=== PATIENT | female | born 1985 | race Caucasian/White ===

== ENCOUNTER 2020-07-21 07:33 | Day surgery (SDC) | payer MEDICAID ==
[2020-07-21] MEDS ORDERED: Sodium Chloride 0.9% 1,000 ML IV SCH (08:00)
[2020-07-21] MEDS ORDERED: ceFAZolin 2 GM in Premix Bag 1 BAG IV ONE (08:00)
[2020-07-21] MEDS ORDERED: metroNIDAZOLE/Normal Saline 500 MG in Premix Bag 1 BAG IV ONE (08:00)
[2020-07-21] MEDS ORDERED: Acetaminophen/HYDROcodone 325-5 MG Tab PO PRN (08:48)
[2020-07-21] MEDS ORDERED: hydrOXYzine HCL 100 MG/2 ML SDV IM PRN (08:48)
[2020-07-21] MEDS ORDERED: Benzocaine/Cetylpyridinium/Menthol Lozenge MUCMEM PRN (08:48)
[2020-07-21] MEDS ORDERED: Docusate Sodium 100 MG Cap PO PRN (08:48)
[2020-07-21] MEDS ORDERED: Zolpidem 5 MG Tab PO PRN (08:48)
[2020-07-21] MEDS: Bupivacaine 0.5% 50 ML MDV ONE ×3 (09:04→10:48)
[2020-07-21] MEDS: Lidocaine 1% with EPINEPHrine 1:100,000 50 ML MDV ONE ×3 (09:05→10:48)
[2020-07-21] MEDS ORDERED: Neostigmine Methylsulfate 1 MG/ML 5 ML Syringe ONE (09:15)
[2020-07-21] MEDS ORDERED: fentaNYL 250 MCG/5 ML SDV ONE ×2 (09:15→10:24)
[2020-07-21] MEDS ORDERED: Propofol 200 MG/20 ML SDV ONE (09:15)
[2020-07-21] MEDS ORDERED: Succinylcholine 200 MG/10 ML MDV ONE (09:15)
[2020-07-21] MEDS ORDERED: Ondansetron 4 MG/2 ML SDV ONE (09:15)
[2020-07-21] MEDS ORDERED: Glycopyrrolate 0.2 MG/ML 5 ML MDV ONE (09:15)
[2020-07-21] MEDS ORDERED: Rocuronium 50 MG/5 ML Vial ONE (09:15)
[2020-07-21] MEDS ORDERED: Dexamethasone 4 MG/ML SDV ONE (09:15)
[2020-07-21] MEDS ORDERED: Lactated Ringers 1,000 ML ONE (10:56)
[2020-07-21] MEDS ORDERED: Acetaminophen/HYDROcodone 325-5 MG Tab PO ONE (12:23)
--- NOTE | 2020-07-21 12:43 | OR ---
DATE OF PROCEDURE: 07/21/2020 SURGEON: Michele Dennison MD PROCEDURES: 1. Bilateral rectus sheath blocks. 2. Bilateral transversus abdominis plane blocks. COMPLICATIONS: None. CORRECTIONAL SECURITY OFFICER: None. RISKS: Risks, benefits, alternatives, and limitations including but not limited to infection, bleeding, and injury to abdominal structures were explained to the patient who wished to proceed. PROCEDURE IN DETAIL: The patient was placed in supine position. Left transversus plane was identified first. This was then accessed using a 13 megahertz ultrasound probe. 20% of solution was injected in this location. The right side was then performed in same manner, same fashion, same technique, and the same sequence using the same equipment. The rectus sheaths, left and right were then injected under direct visualization using a 13 megahertz ultrasound probe. 20% of solutions were used for each of these respectively. At no point was the needle advanced blindly or inadvertently into the abdomen. The patient tolerated the procedure well. Michele Dennison MD /[id number]
--- NOTE | 2020-07-22 07:22 | OR ---
DATE OF PROCEDURE: 07/21/2020 SURGEON: Michele Dennison MD PROCEDURE: Laparoscopic cholecystectomy. COMPLICATIONS: None. SPRUE CUTTING PRESS OPERATOR: None. ANESTHESIA: General. RISKS: Risks, benefits, alternatives, and limitations including but not limited to infection, bleeding, common bile duct injury, cystic duct leak, hematoma, seroma, biloma, or the possibility of open surgery and other risks not listed here were explained to the patient who wished to proceed. PROCEDURE IN DETAIL: The patient was placed in supine position. A supraumbilical curvilinear incision was made. A Veress needle was used to enter the abdomen without abnormality. A drop test was performed without abnormality. The abdomen was subsequently insufflated. A 10 and two 5 mm ports were also entered under direct visualization. The gallbladder was retracted cephalad. The infundibulum was retracted inferolaterally. Using blunt dissection, a "clear view" of the gallbladder was obtained with a single pulsatile structure entering the gallbladder and a single non-pulsatile structure entering the gallbladder. These were then subsequently clipped and transected. The remaining 1/3rd of the gallbladder was removed off the gallbladder bed without difficulty. This was delivered through a superior port via bag without difficulty. The abdomen was re-insufflated. The pressure was dropped to 7. There was no evidence of bleeding in the liver bed. The air and liquid were removed. The wounds were closed with 3-0 Vicryl and 4-0 Vicryl in interrupted running fashion. Dermabond was applied. The patient tolerated the procedure well. Michele Dennison MD /[id number]
== END 2020-07-21 14:00 | disposition home or self-care (01) ==
LOC: JP.SDS 07:33
PROVIDERS: ATTEND Surgery
DX: K80.10 Calculus of gallbladder with chronic cholecystitis without obstruction (principal); F17.210 Nicotine dependence, cigarettes, uncomplicated; E66.01 Morbid (severe) obesity due to excess calories; Z68.42 Body mass index [BMI] 45.0-49.9, adult
CPT/HCPCS: 47562; 81025; A9270; J0171; J0330; J0690; J1100; J2405; J2704; J2710; J2795; J3010; J3490; J7030; J7120; 88304

== ENCOUNTER 2022-08-10 07:41 | Emergency (ER) | payer MEDICAID ==
[2022-08-10] MEDS ORDERED: Sodium Chloride 0.9% 10 ML Syringe FLUSH PRN (08:07)
== END 2022-08-10 09:21 | disposition home or self-care (01) ==
LOC: JP.ED 07:41
DX: R10.31 Right lower quadrant pain (principal); K21.9 Gastro-esophageal reflux disease without esophagitis; Z79.899 Other long term (current) drug therapy; Z72.0 Tobacco use; Z90.49 Acquired absence of other specified parts of digestive tract
CPT/HCPCS: 36415; 74176; 74176-26; 80048; 85025; 99284

== ENCOUNTER 2022-08-16 08:53 | Day surgery (SDC) | payer MEDICAID ==
[2022-08-16] MEDS ORDERED: Lactated Ringers 1,000 ML IV SCH (09:30)
[2022-08-16] MEDS ORDERED: Midazolam 1 MG/ML 2 ML SDV ONE (09:36)
[2022-08-16] MEDS ORDERED: Propofol 200 MG/20 ML SDV ONE ×2 (09:36→11:20)
[2022-08-16] MEDS ORDERED: fentaNYL 100 MCG/2 ML SDV ONE (09:36)
== END 2022-08-16 12:50 | disposition home or self-care (01) ==
LOC: JP.SDS 08:53
PROVIDERS: ATTEND Student in an Organized Health Care Education/Training Program
DX: K29.50 Unspecified chronic gastritis without bleeding (principal); K21.9 Gastro-esophageal reflux disease without esophagitis; K25.9 Gastric ulcer, unspecified as acute or chronic, without hemorrhage or perforation
CPT/HCPCS: 43239; 45380; 81025; J2250; J2704; J3010; J7120

== ENCOUNTER 2023-03-05 08:12 | Emergency (ER) | payer MEDICAID | END 2023-03-05 09:30 | disposition home or self-care (01) | LOC: JP.ED 08:12 | DX: K12.1 Other forms of stomatitis (principal); K12.30 Oral mucositis (ulcerative), unspecified; K21.9 Gastro-esophageal reflux disease without esophagitis; E66.9 Obesity, unspecified; Z68.29 Body mass index [BMI] 29.0-29.9, adult; Z87.891 Personal history of nicotine dependence; Z79.899 Other long term (current) drug therapy | CPT/HCPCS: 87651-QW; 99283 ==

== ENCOUNTER 2023-06-21 08:40 | Emergency (ER) | payer MEDICAID ==
[2023-06-21] MEDS: Lactated Ringers 1,000 ML IV ONE (11:19)
[2023-06-21 11:20] LABS: BLOOD UREA NITROGEN,BUN 10 mg/dL (7-18); CALCIUM 8.6 mg/dL (8.5-10.1); CARBON DIOXIDE,CO2 22 mmol/L (21-32); CHLORIDE,CL 102 mmol/L (100-108); CREATININE 0.7 mg/dL (0.6-1.0); ESTIMATED GFR 112 mL/min (>60); GLUCOSE RANDOM 98 mg/dL (74-106); POTASSIUM,K 3.7 mmol/L (3.6-5.2); SODIUM,NA 134 mmol/L (140-148)
[2023-06-21] MEDS: Sodium Chloride 0.9% 10 ML Syringe FLUSH PRN (11:20)
[2023-06-21 11:22] LABS: ANION GAP 13.7 mmol/L (5.0-14.0)
[2023-06-21 11:23] LABS: CORONAVIRUS COVID-19 NAA NEGATIVE (NEGATIVE); INFLUENZA A NAA NEGATIVE (NEGATIVE); INFLUENZA B NAA NEGATIVE (NEGATIVE); RESPIRATORY SYNCYTIAL VIR NAA NEGATIVE (NEGATIVE)
[2023-06-21] MEDS: Ketorolac 30 MG/ML SDV IVPUSH ONE (11:28)
[2023-06-21 12:05] LABS: BASOPHILS ABSOLUTE AUTO 0.04 K/uL (0.00-0.10); BASOPHILS PERCENT AUTO 0.3 % (0.1-1.3); EOSINOPHILS ABSOLUTE AUTO 0.33 K/uL (0.00-0.40); EOSINOPHILS PERCENT AUTO 2.7 % (0.0-5.4); HEMATOCRIT 43.8 % (34.3-46.0); HEMOGLOBIN 15.2 g/dL (11.2-15.5); IMMATURE GRAN ABSOLUTE AUTO 0.04 K/uL (0.00-0.23); IMMATURE GRAN PERCENT AUTO 0.3 % (0.0-0.7); LYMPHOCYTES ABSOLUTE AUTO 1.25 K/uL (0.8-3.3); LYMPHOCYTES PERCENT AUTO 10.3 % (11.4-47.7); MEAN CORPUSCULAR HEMOGLOBIN 30.6 pg (31.6-35.5); MEAN CORPUSCULAR HGB CONC 34.7 g/dL (31.6-35.5); MEAN CORPUSCULAR VOLUME 88.1 fL (81.4-99.0); MONOCYTES ABSOLUTE AUTO 0.68 K/uL (0.20-0.90); MONOCYTES PERCENT AUTO 5.6 % (3.3-12.6); NEUTROPHILS ABSOLUTE AUTO 9.81 K/uL (1.0-7.6); NEUTROPHILS PERCENT AUTO 80.8 % (40.0-78.1); PLATELET COUNT,PLT 283 K/uL (130-375); RED BLOOD CELL COUNT 4.97 M/uL (3.77-5.24); WHITE BLOOD CELL COUNT,WBC 12.2 K/uL (3.2-11.0)
== END 2023-06-21 12:53 | disposition home or self-care (01) ==
LOC: JP.ED 08:40
DX: R19.7 Diarrhea, unspecified (principal); K21.9 Gastro-esophageal reflux disease without esophagitis; E66.9 Obesity, unspecified; Z79.899 Other long term (current) drug therapy; Z90.49 Acquired absence of other specified parts of digestive tract; Z68.21 Body mass index [BMI] 21.0-21.9, adult
CPT/HCPCS: 0241U; 36415; 80048; 83605; 85025; 96361; 96374; 99284; J1885; J3490; J7120

== ENCOUNTER 2024-06-19 07:42 | Day surgery (SDC) | payer MEDICAID ==
[~2024-06-19 07:42] MED LIST: Midazolam 1 MG/ML 2 ML SDV ONE; Propofol 200 MG/20 ML SDV ONE; fentaNYL 50 MCG/ML SDV ONE
[2024-06-19] MEDS: Lactated Ringers 1,000 ML IV SCH (08:26)
== END 2024-06-19 09:40 | disposition home or self-care (01) ==
LOC: JP.SDS 07:42
PROVIDERS: ATTEND Surgery
DX: K21.9 Gastro-esophageal reflux disease without esophagitis (principal); E66.9 Obesity, unspecified; F17.290 Nicotine dependence, other tobacco product, uncomplicated
CPT/HCPCS: 00731; 43239; 81025; J2250; J2704; J3010; J7120